=== PATIENT | male | born 1965 | race Caucasian/White ===

== ENCOUNTER 2018-05-16 09:40 | Day surgery (SDC) | payer OTHER ==
[2018-05-16] MEDS ORDERED: PROPOFOL 20 ML ONE ×5 (11:05→12:11)
[2018-05-16 11:13] VITALS: BMI 27.2
[2018-05-16] MEDS ORDERED: LIDOCAINE HCL 2% 100 MG/5 ML DISP.SYRIN ONE ×2 (12:09→12:12)
--- NOTE | 2018-05-16 12:11 | PROC ---
Endoscopy Procedure Endoscopy procedure completed. Please see scanned procedure report.
[2018-05-16 12:55] VITALS: TEMP 98.4
[2018-05-16 14:10] VITALS: BP 129/71; PULSE 60
--- NOTE | 2018-05-17 17:38 | PATH ---
Surgical Pathology Report Patient Name: YENI LOMBARDI [facility]. Rec. #: [id number] /Age/Gender: 1965 (Age: 52) / M Account: [id number] Location: [facility]-ENDOSCOPY Taken: 05/16/2018 Received: 05/16/2018 Reported: 05/17/2018 Physicians: Romeo Hardin M.D. Specimen(s) Received A: BX CECUM POLYP B: BX TRANSVERSE COLON POLYP Clinical History Screening colonoscopy Postoperative diagnosis: Colon polyp Final Diagnosis A. CECUM POLYP, BIOPSY: POLYPOID COLONIC MUCOSA WITH CHRONIC INFLAMMATION. B. TRANSVERSE COLON POLYP, POLYPECTOMY: TUBULAR ADENOMA. Electronically Signed Abbie Daily M.D. Gross Description A. Received in formalin, labeled "polyp from cecum" is a mooney, irregular portion of soft tissue measuring 0.4 cm. in greatest dimension. The specimen is submitted in toto in one cassette. B. Received in formalin, labeled "biopsy transverse colon polyp" are 2 mooney, irregular portions of soft tissue measuring 0.2 and 0.3 cm. in greatest dimension. The specimens are submitted in toto in one cassette. 05/16/2018 saudi05/16/2018
== END 2018-05-16 14:35 | disposition home or self-care (01) ==
LOC: JASU-ENDO 09:40
PROVIDERS: ATTEND Internal Medicine Gastroenterology
PROC: 0DBL8ZX Excision of Transverse Colon, Via Natural or Artificial Opening Endoscopic, Diagnostic (ICD-10-PCS; 2018-05-16)
PROC: 0DBH8ZX Excision of Cecum, Via Natural or Artificial Opening Endoscopic, Diagnostic (ICD-10-PCS; principal; 2018-05-16 11:30)
DX: Z12.11 Encounter for screening for malignant neoplasm of colon (principal); D12.0 Benign neoplasm of cecum; D12.3 Benign neoplasm of transverse colon; I10 Essential (primary) hypertension; E78.00 Pure hypercholesterolemia, unspecified
CPT/HCPCS: 88305-TC

== ENCOUNTER 2024-06-09 04:55 | Day surgery (SDC) | payer OTHER ==
[2024-06-08 10:22] VITALS: BMI 27.1
[2024-06-09 11:00] VITALS: TEMP 98
[2024-06-09 11:24] VITALS: RESP 16
[2024-06-09 11:25] VITALS: BP 103/67; PULSE 63
== END 2024-06-09 11:25 | disposition home or self-care (01) ==
LOC: JASU-ENDO 04:55
PROVIDERS: ATTEND Student in an Organized Health Care Education/Training Program
PROC: 0DJD8ZZ Inspection of Lower Intestinal Tract, Via Natural or Artificial Opening Endoscopic (ICD-10-PCS; principal; 2024-06-09 10:00)
DX: Z12.11 Encounter for screening for malignant neoplasm of colon (principal); K64.8 Other hemorrhoids; Z86.010 Personal history of colon polyps